=== PATIENT | male | born 1980 | race Caucasian/White ===

== ENCOUNTER 2024-03-27 14:38 | Emergency (ER) | payer MEDICARE, MEDICAID, SELFPAY ==
--- NOTE | 2024-03-27 15:16 | ED.GENMED ---
History of Present Illness
General
Chief Complaint: Fever
Source: patient
Exam Limitations: none
Time Seen by Provider: 03/27/24 14:52
Nursing documentation reviewed up to this point in time: agreed with
History of Present Illness
History of Present Illness:
Patient with history of autism, presents to ED from home secondary to fever, cough, and increased work of breathing over the past 1 week, which has worsened over the past 2 days. Home test for COVID-19 was -2 days ago. Denies sick contact. Denies
vomiting or diarrhea. Denies rash. Denies loss of appetite. However, patient has been less active. Denies recent travel.
Past History
Past History
ED Past Medical History: Other (autism)
Social History
Tobacco: Non-smoker
Living: with family
Review of Systems
Review of Systems
Allergies reviewed?: Yes
All Other Systems: ROS reviewed and negative except as documented in HPI and ROS
Constitutional: Reports fever
EENT: Reports no symptoms
Respiratory: Reports cough and trouble breathing
Cardiac: Reports no symptoms
ABD/GI: Reports no symptoms
Musculoskeletal: Reports no symptoms
Skin: Reports no symptoms; Denies rash
Neurological: Reports no symptoms
Phy Exam
Physical Exam
Physical Exam:
Physical Exam
General: mild distress, acutely ill.
Head: nc/at. eomi
Neck: supple. no meningeal signs.
Heart: s1/s2 regular rate and rhythm, no murmur. equal radial pulses.
Lungs: mild respiratory distress. rhonchi bilaterally
Abdomen: normal bowel sounds. not tender.
Neuro: alert and awake. no focal neurological deficits
Skin: no rash
Extremities: no edema.
Sepsis
Sepsis Screening
Sepsis Assessment: Sepsis Ruled Out
Sepsis Screen
Sepsis Screen: Sepsis Ruled Out
Date: 03/30/24
Time: 05:58
Course
Orders/Labs/Results
Orders:
Orders
03/27/24 15:14
CR Chest Portable - 1 View Urgent
Comment:
Reason For Exam: cough/sob/fever
Reason Study Needs to be Portable: Patient Unstable
03/27/24 15:27
COVID-19 Antigen Urgent
Source: Nasal Swab
Complete Blood Count/With Diff Urgent
Comprehensive Metabolic Panel Urgent
Lactic Acid Q4H
Comment: CANCEL 2nd LACTIC ACID IF 1st LACTIC ACID IS LESS THAN 2
Blood Culture Routine
MILAN Source: Blood/Venous
Specimen Description:
Blood Culture Urgent
MILAN Source: Blood/Venous
Specimen Description:
Influenza A+B Rapid Molecular Urgent
MILAN Source: Nasal Swab
Specimen Description:
03/27/24 15:35
Acetaminophen [Tylenol Oral Solution] 650 mg .ROUTE .STK-MED ONE
Acetaminophen [Tylenol Oral Solution] 650 mg PO NOW STA
03/27/24 17:26
Case Management Consult ONCE
Case Management Consult: VN/Home Care
CefTRIAXone [Rocephin] 1,000 mg IV NOW STA
03/27/24 17:58
Azithromycin [Zithromax] 500 mg PO NOW STA
Abnormal Lab Results
03/27/24
15:27
WBC 27.9 H 10^3/uL
(4.8-10.8)
Plt Count 421 H 10^3/uL
(130-400)
Abs Immat Gran (auto) 0.3 H 10^3/uL
(0-0.05)
Absolute Neuts (auto) 23.0 H 10^3/uL
(1.4-6.5)
Absolute Lymphs (auto) 0.7 L 10^3/uL
(1.2-3.4)
Absolute Monos (auto) 3.8 H 10^3/uL
(0.1-0.6)
Immature Gran % 1.0 H %
(0-0.5)
Neutrophils % 82.4 H %
(42.2-75.2)
Lymphocytes % 2.5 L %
(20.5-51.1)
Monocytes % 13.8 H %
(1.7-9.3)
BUN 21 H mg/dl
(9-20)
Creatinine 0.5 L mg/dL
(0.7-1.3)
Glucose 116 H mg/dl
(70-99)
Albumin 3.1 L g/dl
(3.5-5.0)
03/27/24 15:27
03/27/24 15:27
Vital Signs
Initial and Last Documented VS:
Initial Vital Signs
Pulse Resp Pulse Ox
65 22 88
03/27/24 14:40 03/27/24 14:40 03/27/24 14:40
Last Documented Vital Signs
Temp Pulse Resp BP Pulse Ox
98.0 F 99 24 123/91 90
03/27/24 17:16 03/27/24 17:16 03/27/24 17:16 03/27/24 15:31 03/27/24 18:21
MDM/Problems Addressed
MDM/Problems Addressed:
History, exam, blood work and chest x-ray concerning for pneumonia. However, patient remains alert, awake, and without any evidence of dehydration clinically nor by history. Discussed treatment options with parents at bedside. In light of
patient's underlying autism and likely difficulty staying in the hospital without restraints, chemical or physical, decision made to discharge patient home at this time on oral antibiotics, with understanding that if he does not improve after 48
hours, should consider returning to ED for reevaluation, including potential admission to the hospital. Patient given Rocephin and Zithromax prior to discharge, and will be started on Augmentin as an outpatient.
Patient evaluated by case management -patient set up for visiting nurse follow-up at home.
*Critical Care Note
Total Time (30-74mins, 75-104mins- exclusive of procedures): Not Applicable
ED Attending Note
-
Portions of this chart may have been created with voice recognition software.� Occasional wrong word or��sound alike� substitutions may have occurred due to the inherent limitations of voice recognition software.
Discharge Plan
Departure
Patient Disposition: Home (Routine Discharge)
Date of Disposition: 03/27/24
Time of Disposition: 17:28
Patient with high blood pressure during this ER visit?: Yes
Condition: Fair
Discharge Problem:
Pneumonia
Instructions: Pneumonia, Adult (DC)
Prescriptions:
New
amoxicillin-pot clavulanate 250-62.5 mg/5 mL suspension for reconstitution
10 ml PO TID 7 Days Qty: 210 0RF
No Action
lorazepam 1 MG tablet
3 mg PO Q6H
risperidone 1 MG tablet
1 mg PO BID
melatonin 3 MG tablet extended release
3 mg PO HS
Depakote ER (Extended Release) 250 MG
250 mg PO 5/D
Referrals:
Ranulfo Isabel DO [Family Provider] -
Activity Restrictions/Additional Instructions:
As discussed, please follow-up with your primary care physician for reevaluation. Please consider returning to ED with worsening symptoms. Your prescription has been sent electronically to [facility] in [place].
Interventions
Interventions:
*Risk Screen - Suicide Last Done: 03/27/24 14:40
*General Assessment Last Done: 03/27/24 14:40
*Neglect/Abuse Screening Last Done: 03/27/24 14:40
ED- Fall Risk Assessment Last Done: 03/27/24 15:31
*ED COVID-19 Vaccine History Last Done: 03/27/24 15:31
*Nursing Disposition Last Done: 03/27/24 18:21
ED- Neurological Assessment Last Done: 03/27/24 15:31
ED-Skin Assessment Last Done: 03/27/24 15:31
Discharge Date and Time
Discharge Date/Time: 03/27/24 18:22
Print Language: SENEGALESE
[2024-03-27 15:31] VITALS: BP 123/91
[2024-03-27] MEDS: TYLENOL ORAL SOLUTION 650 MG PO (15:40)
[2024-03-27 15:44] LABS: Hematocrit 39.7 % (39.0-52.0); Hemoglobin 13.2 g/dL (13.0-18.0); Mean Corp Hgb Conc. 33.2 g/dL (33.0-37.0); Mean Corpuscular Hgb 28.1 pg (27.0-31.0); Mean Corpuscular Volume 84.5 fL (80.0-94.0); Mean Platelet Volume 8.6 fL (7.4-10.4); Platelet Count 421 10^3/uL (130-400); Red Cell Dist. Width 13.8 % (11.5-14.5); White Blood Cell Count 27.9 10^3/uL (4.8-10.8)
[2024-03-27 15:53] LABS: COVID-19 Antigen Negative (Negative)
[2024-03-27 15:56] LABS: % Basophils 0.3 % (0-2); % Lymphocytes 2.5 % (20.5-51.1); % Monocytes 13.8 % (1.7-9.3); % Neutrophils 82.4 % (42.2-75.2); Absolute Basophils 0.1 10^3/uL (0-0.2); Absolute Immature Granulocytes 0.3 10^3/uL (0-0.05); Absolute Lymphocytes 0.7 10^3/uL (1.2-3.4); Absolute Monocytes 3.8 10^3/uL (0.1-0.6); Nucleated Red Blood Cells % 0 % (-)
[2024-03-27 16:09] LABS: Lactic Acid 1.6 mmol/L (0.7-2.0)
[2024-03-27 16:10] LABS: ALT (SGPT) 18 U/L (0-50); AST (SGOT) 26 U/L (17-59); Albumin 3.1 g/dl (3.5-5.0); Alkaline Phosphatase 71 U/L (38-126); Blood Urea Nitrogen 21 mg/dl (9-20); Calcium 9.3 mg/dl (8.4-10.2); Carbon Dioxide 29 mmol/L (22-30); Chloride 99 mmol/L (98-107); Glucose 116 mg/dl (70-99); Potassium 4.4 mmol/L (3.5-5.1); Sodium 141 mmol/L (135-145); Total Bilirubin 0.5 mg/dl (0.2-1.3); Total Protein 6.4 g/dl (6.3-8.2); eGFR > 60.00
--- NOTE | 2024-03-27 17:36 | CM ---
CM consult placed for VN. Chart reviewed. Patient's parents in room with patient. CM introduced self and role. Patient's parents in agreement with VN. Referral placed in [facility]. Attending physician made aware.
[2024-03-27 17:50] VITALS: BMI 17.4
[2024-03-27] MEDS: ROCEPHIN 1000 MG IV (17:51)
[2024-03-27] MEDS: ZITHROMAX 500 MG PO (18:18)
== END 2024-03-27 18:22 | disposition home or self-care (01) ==
LOC: EMR 14:38
PROVIDERS: EMERGENCY PHYSICIAN Emergency Medicine; FAMILY PHYSICIAN Family Medicine
DX: J18.9 Pneumonia, unspecified organism (principal); Z11.52 Encounter for screening for COVID-19; R03.0 Elevated blood-pressure reading, without diagnosis of hypertension; F84.0 Autistic disorder
CPT/HCPCS: 99284; 96374; 71045; 80053; 83605; 85025; 87040; 87502; 87811